=== PATIENT | female | born 1950 | race Caucasian/White ===

== ENCOUNTER 2023-06-04 09:15 | Outpatient (RCR) | payer MEDICARE, BC, SELFPAY | END 2023-06-04 23:59 | disposition home or self-care (01) | LOC: PURB 09:15 | PROVIDERS: ATTENDING PHYSICIAN Internal Medicine; FAMILY PHYSICIAN Internal Medicine | DX: J45.30 Mild persistent asthma, uncomplicated (principal) | CPT/HCPCS: 94625; G0237 ==

== ENCOUNTER 2023-07-23 09:30 | Outpatient (RCR) | payer MEDICARE, BC, SELFPAY | END 2023-07-23 23:59 | disposition home or self-care (01) | LOC: PURB 09:30 | PROVIDERS: ATTENDING PHYSICIAN Internal Medicine; FAMILY PHYSICIAN Internal Medicine | DX: J45.30 Mild persistent asthma, uncomplicated (principal) | CPT/HCPCS: 94625 ==

== ENCOUNTER 2023-08-22 09:30 | Outpatient (RCR) | payer MEDICARE, BC, SELFPAY | END 2023-08-22 23:59 | disposition home or self-care (01) | LOC: PURB 09:30 | PROVIDERS: ATTENDING PHYSICIAN Internal Medicine; FAMILY PHYSICIAN Internal Medicine | DX: J45.30 Mild persistent asthma, uncomplicated (principal); J42 Unspecified chronic bronchitis | CPT/HCPCS: 94625 ==

== ENCOUNTER 2023-08-27 09:30 | Outpatient (RCR) | payer MEDICARE, BC, SELFPAY | END 2023-09-18 11:04 | disposition home or self-care (01) | LOC: PURB 09:30 | PROVIDERS: ATTENDING PHYSICIAN Internal Medicine; FAMILY PHYSICIAN Internal Medicine | DX: J45.30 Mild persistent asthma, uncomplicated (principal) | CPT/HCPCS: 94625 ==

== ENCOUNTER → 2023-10-28 06:27 | Day surgery (SDC) | payer MEDICARE, BC, SELFPAY ==
[2023-10-28 08:39] LABS: Glucose - Point of Care 140 mg/dl (70-99)
== END ==
LOC: GI 06:27
PROVIDERS: ATTENDING PHYSICIAN Internal Medicine Gastroenterology; FAMILY PHYSICIAN Internal Medicine
DX: Z12.11 Encounter for screening for malignant neoplasm of colon (principal); D12.2 Benign neoplasm of ascending colon; D12.5 Benign neoplasm of sigmoid colon; K57.30 Diverticulosis of large intestine without perforation or abscess without bleeding; K64.8 Other hemorrhoids
CPT/HCPCS: 45385; 45380; 88305; 82962

== ENCOUNTER → 2023-11-15 13:49 | Outpatient (REF) | payer MEDICARE, BC, SELFPAY | LOC: RAD 13:49 | PROVIDERS: ATTENDING PHYSICIAN Surgery Vascular Surgery; FAMILY PHYSICIAN Internal Medicine | DX: Z13.6 Encounter for screening for cardiovascular disorders (principal); I65.23 Occlusion and stenosis of bilateral carotid arteries; I73.9 Peripheral vascular disease, unspecified | CPT/HCPCS: 93880; 93922; 93925 ==

== ENCOUNTER 2023-12-15 15:49 | Emergency (ER) | payer MEDICARE, BC, SELFPAY ==
[2023-12-15 15:54] VITALS: BP 116/71
--- NOTE | 2023-12-15 18:05 | ED.GENMED ---
History of Present Illness
General
Chief Complaint: DVT/Possible Blood Clot
Source: patient
Exam Limitations: none
Time Seen by Provider: 12/15/23 16:26
Nursing documentation reviewed up to this point in time: agreed with
History of Present Illness
History of Present Illness:
Patient to ED with complaint of swelling to right foot and ankle. Symptoms started yesterday. No history of trauma. Advised to come to ED to r/o DVT
Past History
Past History
ED Past Medical History: Asthma, GERD, HTN, Hypercholesterolemia and NIDDM
Review of Systems
Review of Systems
Allergies reviewed?: Yes
All Other Systems: ROS reviewed and negative except as documented in HPI and ROS
Constitutional: Reports no symptoms
Respiratory: Reports no symptoms
Cardiac: Reports no symptoms
Musculoskeletal: Reports other (swelling to right foot/ankle)
Skin: Reports no symptoms
Neurological: Reports no symptoms
Psychiatric: Reports no symptoms
Phy Exam
General Physical Exam
General Presentation: well appearing and no apparent distress
General age: appears stated age
General Skin: warm and dry
General Habitus: normal
General Mental: alert
General Hydration: appears well hydrated
Musculoskeletal Exam
Musculoskeletal Exam: full ROM and neuro vasc intact
Skin Exam
Skin Exam: normal color and warm/dry
Psychiatric Exam
Psychiatric Exam: normal mood/affect
Course
Orders/Labs/Results
Orders:
Orders
12/15/23 15:57
Venous Doppler Lwr Ext Rt [US Periph Venous LOWER Ext RT] Urgent
Comment:
Reason For Exam: swelling
Vital Signs
Initial and Last Documented VS:
Initial Vital Signs
Temp Pulse Resp BP Pulse Ox
98.1 F 67 18 116/71 96
12/15/23 15:54 12/15/23 15:54 12/15/23 15:54 12/15/23 15:54 12/15/23 15:54
Last Documented Vital Signs
Temp Pulse Resp BP Pulse Ox
98.1 F 67 18 116/71 96
12/15/23 15:54 12/15/23 15:54 12/15/23 15:54 12/15/23 15:54 12/15/23 15:54
*Radiology
Radiology exam reviewed: radiology read reviewed
*Pulse Oximetry
Patient hypoxic: no
*Critical Care Note
Total Time (30-74mins, 75-104mins- exclusive of procedures): Not Applicable
ED Attending Note
-
Portions of this chart may have been created with voice recognition software.� Occasional wrong word or��sound alike� substitutions may have occurred due to the inherent limitations of voice recognition software.
Discharge Plan
Departure
Patient Disposition: Home (Routine Discharge)
Date of Disposition: 12/15/23
Time of Disposition: 17:50
Patient with high blood pressure during this ER visit?: No
Condition: Good
Covid-19: Not Applicable
Discharge Problem:
Ankle swelling
Instructions: Swelling
Prescriptions:
No Action
formoterol fumarate [Perforomist] 20 MCG/2 ML solution for nebulization
1 inh inhalation R DAILY PRN (Reason: Lung/breathing issues)
metformin 500 mg tablet
250 mg PO QPM
aspirin 81 MG tablet,delayed release (DR/EC)
81 mg PO HS
pantoprazole 40 mg tablet,delayed release (DR/EC)
40 mg PO HS
calcium carbonate [Antacid (calcium carbonate)] 200 mg calcium (500 mg) tablet,chewable
2 tab PO Q4H PRN (Reason: indigestion)
azelastine 1 SPRAY aerosol,spray
1 spray intranasal BID
amlodipine 5 MG tablet
5 mg PO DAILY
rosuvastatin 40 MG tablet
40 mg PO DAILY
duloxetine 30 MG capsule,delayed release(DR/EC)
30 mg PO HS
multivitamin with folic acid [Tab-A-Maryse] 1 TABLET tablet
1 tab PO DAILY
metoprolol succinate 25 mg Tablet Extended Release 24 Hr
25 mg PO DAILY Qty: 30 0RF
fluticasone propion-salmeterol 230-21 mcg/actuation Hfa Aerosol Inhaler
2 puff inhalation R BID Qty: 12 0RF
Referrals:
Yana Whitmore MD [Family Provider] - Tomorrow
Interventions
Interventions:
*Risk Screen - Suicide Last Done: 12/15/23 15:54
*General Assessment Last Done: 12/15/23 15:54
*Neglect/Abuse Screening Last Done: 12/15/23 15:54
*Nursing Disposition Last Done: 12/15/23 18:07
ED-Skin Assessment Last Done: 12/15/23 18:07
Discharge Date and Time
Print Language: CYMRO
Musculoskeletal Injury Exam
Musculoskeletal Injury Exam
Right foot/ankle:
Pain with Movement?: None
Tender to palpation?: None
Soft tissue swelling?: Mild
External deformity and angulation?: None
Joint effusion?: None
Contusion?: None
Hematoma-local bleeding into tissue?: None
Strain- Sprain- Tear (Connective tissue injury)?: None
Crepitus with movement?: No
Joint instability?: No
Malalignment/deformity?: No
Range of motion: Full
Distal skin color and temperature: normal-warm & good color
Capillary Refill: normal
Normal distal neurovascular exam?: Yes
Peripheral Pulses: posterior tibial (right): 3+ and dorsalis pedis (right): 3+
== END 2023-12-15 18:08 | disposition home or self-care (01) ==
LOC: EMR 15:49
PROVIDERS: EMERGENCY PHYSICIAN Emergency Medicine; FAMILY PHYSICIAN Internal Medicine
DX: R22.41 Localized swelling, mass and lump, right lower limb (principal)
CPT/HCPCS: 99284; 93971

== ENCOUNTER → 2024-05-05 09:30 | Outpatient (REF) | payer MEDICARE, BC, SELFPAY | LOC: PAVMRI 09:30 | PROVIDERS: ATTENDING PHYSICIAN Physician Assistant Surgical; FAMILY PHYSICIAN Internal Medicine | DX: M25.511 Pain in right shoulder (principal) | CPT/HCPCS: 73221 ==

== ENCOUNTER → 2024-05-13 10:44 | Day surgery (SDC) | payer MEDICARE, BC, SELFPAY | LOC: SDSPAT 10:44 | PROVIDERS: ATTENDING PHYSICIAN Specialist; FAMILY PHYSICIAN Internal Medicine | DX: Z01.810 Encounter for preprocedural cardiovascular examination (principal); Z01.812 Encounter for preprocedural laboratory examination | CPT/HCPCS: 93005; 36415 ==

== ENCOUNTER 2024-05-26 06:19 | Day surgery (SDC) | payer MEDICARE, BC, SELFPAY ==
[2024-05-13 13:12] VITALS: BMI 29.5
--- NOTE | 2024-05-14 14:15 | PTCARENOTE ---
Preop EKG showed non-specific ST and T wave abnormality. See EKG scanned, dated 08/06/22 showing prior history.
--- NOTE | 2024-05-18 15:19 | VNURNOTE ---
Rec'ed info from PAT that pt had questions about [facility]. Home Health Liaison spoke with patient and discussed [facility] nurse/therapy, visits, schedule and homebound status. Patient not sure if she'll need VN. She will hold off for now. Advised her to
reach out to Ortho office with questions regarding surgery and post op plan.
[2024-05-26] VITALS (11 sets, daily range): BP systolic 121–160; BP diastolic 53–78
[2024-05-26] MEDS: TYLENOL 1000 MG PO (10:47)
[2024-05-26] MEDS: CELEBREX 200 MG PO (10:47)
[2024-05-26] MEDS: NORMOSOL-R/PLASMALYTE-A 1000 IV (10:48)
[2024-05-26 10:55] LABS: Glucose - Point of Care 139 mg/dl (70-99)
[2024-05-26 14:09] LABS: Glucose - Point of Care 139 mg/dl (70-99)
== END 2024-05-26 17:04 | disposition home or self-care (01) ==
LOC: SDS 06:19
PROVIDERS: ATTENDING PHYSICIAN Specialist; FAMILY PHYSICIAN Internal Medicine
DX: M75.121 Complete rotator cuff tear or rupture of right shoulder, not specified as traumatic (principal); M75.41 Impingement syndrome of right shoulder
CPT/HCPCS: 29827; 29828; 29823; 82962

== ENCOUNTER 2024-09-02 12:33 | Emergency (ER) | payer MEDICARE, BC, SELFPAY ==
[2024-09-02 12:43] VITALS: BP 137/75
[2024-09-02 13:16] LABS: % Basophils 0.2 % (0-2); % Immature Granulocytes 0.4 % (0-0.5); % Lymphocytes 12.2 % (20.5-51.1); % Monocytes 4.8 % (1.7-9.3); % Neutrophils 82.4 % (42.2-75.2); Absolute Immature Granulocytes 0.1 10^3/uL (0-0.05); Absolute Lymphocytes 1.6 10^3/uL (1.2-3.4); Absolute Monocytes 0.6 10^3/uL (0.1-0.6); Absolute Neutrophils 10.7 10^3/uL (1.4-6.5); Hematocrit 41.1 % (37.0-47.0); Hemoglobin 14.2 g/dL (12.0-16.0); Mean Corp Hgb Conc. 34.5 g/dL (33.0-37.0); Mean Corpuscular Volume 86.7 fL (81.0-99.0); Mean Platelet Volume 10.1 fL (7.4-10.4); Nucleated Red Blood Cells % 0 %; Platelet Count 312 10^3/uL (130-400); Red Blood Cell Count 4.74 10^6/uL (4.20-5.40); Red Cell Dist. Width 12.6 % (11.5-14.5)
[2024-09-02 13:21] LABS: ALT (SGPT) 25 U/L (0-35); AST (SGOT) 27 U/L (14-36); Albumin 4.4 g/dl (3.5-5.0); Alkaline Phosphatase 68 U/L (38-126); Blood Urea Nitrogen 25 mg/dl (7-17); Carbon Dioxide 23 mmol/L (22-30); Chloride 106 mmol/L (98-107); Glucose 149 mg/dl (70-99); Potassium 4.5 mmol/L (3.5-5.1); Sodium 138 mmol/L (135-145); Total Bilirubin 0.6 mg/dl (0.2-1.3); Total Protein 6.8 g/dl (6.3-8.2); eGFR > 60.00
[2024-09-02 13:29] LABS: Troponin I < 0.012 ng/ml
--- NOTE | 2024-09-02 14:38 | ED.GENMED ---
History of Present Illness
General
Chief Complaint: Fainting Sensation
Time Seen by Provider: 09/02/24 14:06
History of Present Illness
History of Present Illness:
74 female with history of COPD, hypertension, and hyperlipidemia presents to the emergency department for evaluation of dizziness and lightheadedness that occurred during physical therapy today, as well as a headache developing last night. Patient
notes that she received steroid injections in the right hand yesterday at her orthopedist. Noted that her blood sugars were slightly elevated today as a result. Only ate an egg and a protein bar today in order to not raise her blood sugar any
further. Currently reports headache and lightheadedness. No syncope, chest pain, or shortness of breath
Past History
Past History
ED Past Medical History: Asthma, GERD, HTN, Hypercholesterolemia and NIDDM
Review of Systems
Review of Systems
Allergies reviewed?: Yes
All Other Systems: ROS reviewed and negative except as documented in HPI and ROS
Phy Exam
Physical Exam
Physical Exam:
GEN: Well appearing, NAD, WDWN
HEENT: Oral mucosa moist, no scleral icterus, no nasal congestion
Cardiac: Regular rate and rhythm, no murmur
Lung: No respiratory distress, no tachypnea, lungs clear to auscultation bilaterally
MSK: No gross deformity or injuries
Skin: Good color, no pallor or jaundice, no rashes
Neuro: AO x3; CN II-XII grossly intact. BUE strength 5/5 in all devlin, sensation intact and symmetric. BLE strength 5/5 in all devlin, sensation intact and symmetric
Psych: Calm, cooperative
Course
Orders/Labs/Results
Orders:
Orders
09/02/24 12:35
EKG [Electrocardiogram (*1)] Urgent
Reason for Study: Vertigo / Dizzy
EKG- Treatment ONCE
09/02/24 12:51
CBC/With Diff [Complete Blood Count/With Diff] Urgent
Comprehensive Metabolic Panel Urgent
Troponin I Urgent
09/02/24 14:37
0.9% Sodium Chloride 500 ml [Nss] 500 ml IV BOLUS
Ketorolac [Toradol] 15 mg IV NOW STA
Metoclopramide [Reglan] 10 mg IV NOW STA
Abnormal Lab Results
09/02/24
12:51
WBC 13.0 H 10^3/uL
(4.8-10.8)
Abs Immat Gran (auto) 0.1 H 10^3/uL
(0-0.05)
Absolute Neuts (auto) 10.7 H 10^3/uL
(1.4-6.5)
Neutrophils % 82.4 H %
(42.2-75.2)
Lymphocytes % 12.2 L %
(20.5-51.1)
BUN 25 H mg/dl
(7-17)
Glucose 149 H mg/dl
(70-99)
09/02/24 12:51
09/02/24 12:51
Vital Signs
Initial and Last Documented VS:
Initial Vital Signs
Temp Pulse Resp BP Pulse Ox
97.8 F 66 16 137/75 98
09/02/24 12:43 09/02/24 12:43 09/02/24 12:43 09/02/24 12:43 09/02/24 12:43
Last Documented Vital Signs
Temp Pulse Resp BP Pulse Ox
97.8 F 58 18 141/82 97
09/02/24 12:43 09/02/24 15:40 09/02/24 15:40 09/02/24 15:40 09/02/24 15:40
MDM/Problems Addressed
MDM/Problems Addressed:
Given IV fluids and migraine cocktail with improvement in symptoms. Likely vasovagal phenomenon due to recent steroid administration
*Critical Care Note
Total Time (30-74mins, 75-104mins- exclusive of procedures): Not Applicable
ED Attending Note
-
Portions of this chart may have been created with voice recognition software.� Occasional wrong word or��sound alike� substitutions may have occurred due to the inherent limitations of voice recognition software.
Discharge Plan
Departure
Patient Disposition: Home (Routine Discharge)
Date of Disposition: 09/02/24
Time of Disposition: 15:41
Patient with high blood pressure during this ER visit?: No
Discharge Problem:
Lightheadedness
Instructions: Fainting in adults - ED discharge instructions
Prescriptions:
No Action
formoterol fumarate [Perforomist] 20 MCG/2 ML solution for nebulization
1 inh inhalation PRN PRN (Reason: Lung/breathing issues)
metformin 500 mg tablet
250 mg PO QPM
aspirin 81 MG tablet,delayed release (DR/EC)
81 mg PO HS
azelastine 1 SPRAY aerosol,spray
1 spray intranasal BID
amlodipine 5 MG tablet
5 mg PO DAILY
rosuvastatin 40 MG tablet
40 mg PO DAILY
duloxetine 30 MG capsule,delayed release(DR/EC)
30 mg PO HS
multivitamin with folic acid [Tab-A-Maryse] 1 TABLET tablet
1 tab PO DAILY
fluticasone propion-salmeterol 250-50 mcg/dose Blister With Device
1 inh INHALATION BID
famotidine [Pepcid] 20 mg Tablet
20 mg PO HS
lysine 500 mg Tablet
500 mg PO DAILY
albuterol sulfate 90 mcg/actuation Hfa Aerosol Inhaler
2 puff INHALATION Q6H PRN (Reason: SOB)
Referrals:
Yana Whitmore MD [Family Provider] -
Interventions
Interventions:
*Risk Screen - Suicide Last Done: 09/02/24 12:43
*General Assessment Last Done: 09/02/24 13:39
*Neglect/Abuse Screening Last Done: 09/02/24 12:43
*ED- Fall Risk Assessment Last Done: 09/02/24 13:39
*Nursing Disposition Last Done: 09/02/24 15:49
ED- Cardiac Assessment Last Done: 09/02/24 13:39
ED- Neurological Assessment Last Done: 09/02/24 13:39
Discharge Date and Time
Discharge Date/Time: 09/02/24 15:51
Print Language: [id number]
[2024-09-02] MEDS: TORADOL 15 MG IV (14:42)
[2024-09-02] MEDS: REGLAN 10 MG IV (14:42)
[2024-09-02] MEDS: NSS 500 IV (14:43)
[2024-09-02 15:40] VITALS: BP 141/82
== END 2024-09-02 15:51 | disposition home or self-care (01) ==
LOC: EMR 12:33
PROVIDERS: Emergency Medicine; EMERGENCY PHYSICIAN Emergency Medicine; FAMILY PHYSICIAN Internal Medicine
DX: R42 Dizziness and giddiness (principal); E11.9 Type 2 diabetes mellitus without complications; E78.00 Pure hypercholesterolemia, unspecified; I10 Essential (primary) hypertension; J44.89 Other specified chronic obstructive pulmonary disease
CPT/HCPCS: 96374; 96375; 96361; 99284; 80053; 84484; 85025; 93005

== ENCOUNTER → 2024-10-06 14:46 | Outpatient (REF) | payer MEDICARE, BC, SELFPAY | LOC: HWRCS 14:46 | PROVIDERS: ATTENDING PHYSICIAN Physician Assistant Medical; FAMILY PHYSICIAN Internal Medicine | DX: R06.09 Other forms of dyspnea (principal); I35.0 Nonrheumatic aortic (valve) stenosis | CPT/HCPCS: 93306 ==

== ENCOUNTER 2024-12-22 06:19 | Day surgery (SDC) | payer MEDICARE, BC, SELFPAY ==
[2024-12-22] VITALS (16 sets, daily range): BP systolic 97–138; BP diastolic 39–66; BMI 27.5
[2024-12-22] MEDS: TYLENOL 1000 MG PO (07:43)
[2024-12-22] MEDS: CELEBREX 200 MG PO (07:44)
[2024-12-22] MEDS: NORMOSOL-R/PLASMALYTE-A 1000 IV (07:54)
[2024-12-22 07:56] LABS: Glucose - Point of Care 147 mg/dl (70-99)
[2024-12-22 12:00] LABS: Glucose - Point of Care 171 mg/dl (70-99)
== END 2024-12-22 13:56 | disposition home or self-care (01) ==
LOC: SDS 06:19
PROVIDERS: ATTENDING PHYSICIAN Specialist
DX: M75.101 Unspecified rotator cuff tear or rupture of right shoulder, not specified as traumatic (principal)
CPT/HCPCS: 29827; 82962; C1713

== ENCOUNTER → 2025-01-19 09:42 | Outpatient (REF) | payer MEDICARE, BC, SELFPAY | LOC: RAD 09:42 | PROVIDERS: ATTENDING PHYSICIAN Surgery Vascular Surgery; FAMILY PHYSICIAN Internal Medicine | DX: I73.9 Peripheral vascular disease, unspecified (principal); I65.23 Occlusion and stenosis of bilateral carotid arteries | CPT/HCPCS: 93880; 93922; 93925 ==